=== PATIENT | female | born 1985 | race African-American/Black ===

== ENCOUNTER 2023-05-04 13:28 | Emergency (ER) | payer SELFPAY ==
[~2023-05-04] VITALS: Ht 170.2 cm; Wt 102.0 kg
[2023-05-04 13:34] VITALS: BP 129/65; RESP 16; TEMP 98.9; O2SAT 99
[2023-05-04 13:39] VITALS: PULSE 65
== END 2023-05-04 14:32 | disposition left against medical advice (07) ==
LOC: ER 13:46
DX: S83.92XA Sprain of unspecified site of left knee, initial encounter (principal); J45.909 Unspecified asthma, uncomplicated; Z98.890 Other specified postprocedural states; X58.XXXA Exposure to other specified factors, initial encounter; Y93.89 Activity, other specified; Y92.89 Other specified places as the place of occurrence of the external cause; Y99.8 Other external cause status
CPT/HCPCS: 99281